=== PATIENT | female | born 1960 | race Caucasian/White ===

== ENCOUNTER 2016-05-29 05:36 | Emergency (ER) | payer BC ==
[~2016-05-29] VITALS: Ht 172.7 cm; Wt 69.5 kg
[~2016-05-29 05:36] MED LIST: CYAN100048 SL; Levothyroxine PO; MELOPOW PO; OMEP1POW2 PO
[2016-05-29 05:42] VITALS: TEMP 36.6; Ht 172.7 cm; Wt 69.5 kg
[2016-05-29] MEDS ORDERED: SODIUM CHLORIDE 0.9% 500ML 500 ML IV STA (05:47)
[2016-05-29] MEDS ORDERED: SODIUM CHLORIDE 0.9% 1000ML 1,000 ML IV STA (05:47)
[2016-05-29] MEDS ORDERED: DiphenhydrAMINE HCL 50 MG/ML VIAL IV STA (05:54)
[2016-05-29] MEDS ORDERED: PROCHLORPERAZINE 5 MG/ML 2 ML VIAL IV STA (05:54)
--- NOTE | 2016-05-29 05:56 | EMERGENCY ROOM VISIT NOTE ---
History Report prepared by Gurmeet: Alem Singer Under the Supervision of: Dr. Johana Swann M.D. First contact with patient: 05:45 Chief Complaint: HEADACHE Stated Complaint: BAD HEADACHE History of Present Illness The patient is a 56 year old female who presents to the Emergency Room with complaints of a worsening headache with onset one hour ago. She rates her discomfort as a 7/10. Two days ago, the patient had a sudden severe headache. This headache went away after the patient was able to sit at her desk at work for a short period of time. This morning, the patient's headache woke her up. This headache is on the patient's left side and the headache is "throbbing." She denies that she is sensitive to light. This is unusual for her as the patient states that she often gets bad headaches on her right side. Usually, the patient states that she is more sensitive to light. The patient states that she is nauseous. Talking worsens her headache. The patient was able to walk through the ED by herself. The patient denies taking blood thinners. She denies vomiting, other medical issues. Source of History: patient Onset: 1 hour ago Position: head Symptom Intensity: 7/10 Quality: other (throbbing left-sided headache) Timing: worsening Modifying Factors (Worsening): other (talking) Associated Symptoms: + nausea, No vomiting Review of Systems See HPI for pertinent positives & negatives. A total of 10 systems reviewed and were otherwise negative. Past Medical & Surgical Medical Problems: (1) Anemia Family History Hypertension Social History Smoking Status: Never Smoker Marital Status: Housing Status: lives with family Occupation Status: employed Current/Historical Medications Scheduled Meloxicam (Bulk) (Meloxicam), 15 MG PO DAILY Prednisone (Prednisone), 40 MG PO DAILY Simvastatin (Zocor), 10 MG PO QPM [Decadron Patch], 1 PATCH TD AFTER THERAPY [Levothyroxine], 75 MCG PO DAILY Scheduled PRN Ibuprofen Tab (Advil), 400-600 MG PO Q6H PRN for Pain Allergies Coded Allergies: No Known Allergies (Unverified , 06/22/10) Physical Exam Vital Signs Date Time Temp Pulse Resp B/P Pulse Ox O2 Delivery O2 Flow Rate FiO2 05/29/16 07:05 81 18 154/92 96 Room Air 05/29/16 05:42 36.6 87 18 181/86 99 Room Air Physical Exam Vital signs reviewed. General: Well-appearing female, in no significant distress. HEENT: No scleral icterus, PERRLA, neck supple. Atraumatic. No meningeal signs. Cardiovascular: Regular rate and rhythm, no extra sounds. Pulmonary: Clear to auscultation bilaterally, normal work of breathing. Abdomen: Soft, nontender, nondistended, positive bowel sounds. Musculoskeletal: Atraumatic, no peripheral edema. Neurologic: Patient awake alert and oriented x 3, full strength in all 4 extremities. Cranial nerves 2 through 12 grossly intact. Skin: Warm, dry, no rash Medical Decision & Procedures ER Provider Diagnostic Interpretation: CT results as stated below per my review and radiologist interpretation: HEAD CT NONCONTRAST CT DOSE: 614.27 mGy.cm HISTORY: Headache headache TECHNIQUE: Multiaxial CT images of the head were performed without the use of intravenous contrast. Comparison: None. Findings: The paranasal sinuses and mastoid air cells are clear. The calvarium and skull base are intact. The ventricles and sulci are within normal limits. There is no mass, hematoma, midline shift, or acute infarct. Impression: No acute intracranial abnormality. Electronically signed by: Howard Brewer M.D. 05/29/2016 7:06 AM Laboratory Results 05/29/16 06:05 Red Blood Count 4.34, Mean Corpuscular Volume 88.7, Mean Corpuscular Hemoglobin 29.7, Mean Corpuscular Hemoglobin Concent 33.5, Mean Platelet Volume 10.3, Neutrophils (%) (Auto) 54.2, Lymphocytes (%) (Auto) 36.5, Monocytes (%) (Auto) 6.8, Eosinophils (%) (Auto) 1.5, Basophils (%) (Auto) 0.5, Neutrophils # (Auto) 2.23, Lymphocytes # (Auto) 1.50, Monocytes # (Auto) 0.28, Eosinophils # (Auto) 0.06, Basophils # (Auto) 0.02 05/29/16 06:05 Test 05/29/16 06:05 White Blood Count 4.11 K/uL (4.8-10.8) Red Blood Count 4.34 M/uL (4.2-5.4) Hemoglobin 12.9 g/dL (12.0-16.0) Hematocrit 38.5 % (37-47) Mean Corpuscular Volume 88.7 fL (80-100) Mean Corpuscular Hemoglobin 29.7 pg (25-34) Mean Corpuscular Hemoglobin Concent 33.5 g/dl (32-36) Platelet Count 187 K/uL (130-400) Mean Platelet Volume 10.3 fL (7.4-10.4) Neutrophils (%) (Auto) 54.2 % Lymphocytes (%) (Auto) 36.5 % Monocytes (%) (Auto) 6.8 % Eosinophils (%) (Auto) 1.5 % Basophils (%) (Auto) 0.5 % Neutrophils # (Auto) 2.23 K/uL (1.4-6.5) Lymphocytes # (Auto) 1.50 K/uL (1.2-3.4) Monocytes # (Auto) 0.28 K/uL (0.11-0.59) Eosinophils # (Auto) 0.06 K/uL (0-0.5) Basophils # (Auto) 0.02 K/uL (0-0.2) RDW Standard Deviation 42.7 fL (36.4-46.3) RDW Coefficient of Variation 13.2 % (11.5-14.5) Immature Granulocyte % (Auto) 0.5 % Immature Granulocyte # (Auto) 0.02 K/uL (0.00-0.02) Anion Gap 9.0 mmol/L (3-11) Est Creatinine Clear Calc Drug Dose 72.1 ml/min Estimated GFR () 84.0 Estimated GFR (Non- 72.5 BUN/Creatinine Ratio 14.4 (10-20) Calcium Level 8.8 mg/dl (8.5-10.1) Total Bilirubin 0.3 mg/dl (0.2-1) Direct Bilirubin < 0.1 mg/dl (0-0.2) Aspartate Amino Transf (AST/SGOT) 17 U/L (15-37) Alanine Aminotransferase (ALT/SGPT) 24 U/L (12-78) Alkaline Phosphatase 49 U/L (45-117) Total Protein 7.1 gm/dl (6.4-8.2) Albumin 4.0 gm/dl (3.4-5.0) Laboratory results per my review. Medications Administered Medications (Trade) Dose Ordered Sig/Abbey Route Start Time Stop Time Status Last Admin Dose Admin Sodium Chloride 500 ml @ 999 mls/hr Q31M STAT IV 05/29/16 05:47 05/29/16 06:17 DC 05/29/16 06:14 999 MLS/HR Sodium Chloride (Nss 1000ml) 1,000 ml @ 125 mls/hr Q8H STAT IV 05/29/16 05:47 05/29/16 07:45 DC 05/29/16 06:14 125 MLS/HR Prochlorperazine Edisylate (Compazine Inj) 10 mg NOW STAT IV 05/29/16 05:54 05/29/16 05:55 DC 05/29/16 06:16 10 MG Diphenhydramine HCl (Benadryl Inj) 25 mg NOW STAT IV 05/29/16 05:54 05/29/16 05:55 DC 05/29/16 06:16 25 MG Morphine Sulfate (MoRPHine SULFATE INJ) 4 mg NOW STAT IV 05/29/16 06:23 05/29/16 06:24 DC 05/29/16 06:28 4 MG Methylprednisolone Sodium Succinate (Solu-Medrol IV) 125 mg NOW STAT IV 05/29/16 06:52 05/29/16 06:53 DC 05/29/16 07:01 125 MG ED Course 0556: Past medical records reviewed. The patient was evaluated in room B7. A complete history and physical examination was performed. 0547: Sodium Chloride 1000 ml @ 125 mls/hr IV, Sodium Chloride 500 ml @ 999 mls/ hr IV 0554: Benadryl 25 mg IV, Compazine 10 mg IV, Fentanyl Citrate 50 mcg IV 0623: Morphine Sulfate 4 mg IV 0650: I reevaluated the patient. She is feeling better. 0652: Solu-Medrol 125 mg IV Medical Decision The patient is a 56 year old female who presents to the ED with complaints of headache. Differentials include: Intracranial hemorrhage, intracranial mass, migraine headache, tension headache, sinusitis, meningitis. This pt was evaluated and appeared to be in some discomfort. IV access was obtained and lab work was drawn. Pt was placed on the satellite project site monitor. Pt was hydrated with NSS, given IV compazine, morphine, benadryl and solu-medral. CT head was performed as ALVAREZ is different than usual migraines. This study is negative. Pt was reevaluated and doing well. Pain had improved. She was d/c to f/u with her PCP and return to the ED for worsening of symptoms or any medical concerns. Impression Primary Impression: Migraine Scribe Attestation The scribe's documentation has been prepared under my direction and personally reviewed by me in its entirety. I confirm that the note above accurately reflects all work, treatment, procedures, and medical decision making performed by me. Departure Information Prescriptions Prednisone (Prednisone) 20 Mg Tab 40 MG PO DAILY, #8 TAB Prov: Johana Swann M.D. 05/29/16 Referrals Alejandra Hung (PCP) Patient Instructions My [facility] Health Problem Qualifiers Primary Impression: Migraine Migraine type: without aura Status migrainosus presence: without status migrainosus Intractability: not intractable Qualified Codes: G43.009 - Migraine without aura, not intractable, without status migrainosus
[2016-05-29] MEDS ORDERED: SIMV10TA2 PO (06:15)
[2016-05-29] MEDS: FENTANYL CITRATE INJ 50 MCG/1 ML 2 ML VIAL IV STA ×2 (06:17→06:25)
[2016-05-29] MEDS ORDERED: MoRPHine SULFATE 4 MG/ML 1 ML CARP\\VIAL IV STA (06:23)
[2016-05-29 06:37] LABS: BASO % 0.5 %; BASO ABS # 0.02 K/uL (0-0.2); COMPLETE YES; EOS % 1.5 %; HEMATOCRIT 38.5 % (37-47); IG% 0.5 %; LYMPH % 36.5 %; MEAN CELL VOLUME 88.7 fL (80-100); MEAN CORPUSCULAR HEMOGLOBIN 29.7 pg (25-34); MEAN CORPUSCULAR HGB CONC 33.5 g/dl (32-36); MEAN PLATELET VOLUME 10.3 fL (7.4-10.4); MONO % 6.8 %; NEUT % 54.2 %; PLATELET COUNT 187 K/uL (130-400); RED BLOOD COUNT 4.34 M/uL (4.2-5.4); WHITE BLOOD COUNT 4.11 K/uL (4.8-10.8)
[2016-05-29] MEDS ORDERED: DECADRON TD (06:37)
[2016-05-29] MEDS ORDERED: IBUP-103 PO (06:39)
[2016-05-29 06:46] LABS: ALT/SGPT 24 U/L (12-78); BLOOD UREA NITROGEN 13 mg/dl (7-18); BUN/CREATININE RATIO 14.4 (10-20); CALCIUM 8.8 mg/dl (8.5-10.1); CARBON DIOXIDE 28 mmol/L (21-32); CHLORIDE 106 mmol/L (98-107); GLUCOSE 91 mg/dl (70-99); POTASSIUM 3.6 mmol/L (3.5-5.1); SODIUM 143 mmol/L (136-145)
[2016-05-29 06:49] LABS: ALKALINE PHOSPHATASE 49 U/L (45-117); AST/SGOT 17 U/L (15-37)
[2016-05-29] MEDS ORDERED: METHYLPREDNISOLONE 125 MG VIAL IV STA (06:52)
[2016-05-29 07:05] VITALS: BP 154/92; PULSE 81; O2SAT 96
--- NOTE | 2016-05-29 07:07 | DIAGNOSTIC IMAGING REPORT ---
HEAD CT NONCONTRAST CT DOSE: 614.27 mGy.cm HISTORY: Headache headache TECHNIQUE: Multiaxial CT images of the head were performed without the use of intravenous contrast. Comparison: None. Findings: The paranasal sinuses and mastoid air cells are clear. The calvarium and skull base are intact. The ventricles and sulci are within normal limits. There is no mass, hematoma, midline shift, or acute infarct. Impression: No acute intracranial abnormality. Electronically signed by: Howard Brewer M.D. 05/29/2016 7:06 AM Dictated Date/Time: 05/29/2016 7:05 AM
[2016-05-29] MEDS ORDERED: PRED20TA PO (07:14)
== END 2016-05-29 07:30 | disposition home or self-care (01) ==
LOC: C.EDB 05:38
DX: R51 Headache (principal); Z82.49 Family history of ischemic heart disease and other diseases of the circulatory system; Z79.899 Other long term (current) drug therapy